=== PATIENT | male | born 1975 | race Caucasian/White ===

== ENCOUNTER 2016-08-08 09:47 | Emergency (ER) | payer SELFPAY ==
[2016-08-08 09:59] VITALS: BMI 36.5
--- NOTE | 2016-08-08 13:10 | PDOC ---
History of Present Illness - General History Source: Patient Exam Limitations: No Limitations - History of Present Illness Initial Comments: 08/08/16 13:45 The patient is a 40 year old male presenting with his , with a significant past medical history of HTN, who presents to the emergency department with headache onset today and back pain for the last couple of weeks. He states that he was at work when he felt a flushed feeling going through his head, for which he became red. It was accompanied by a moderate pounding headache. He notes that the pain lasted roughly 5 minutes before resolving, pt also endorsed some pain in his mouth with this flushing sensation. He denies any current headache He denies taking any medication for the pain. There was no associated vision changes, numbness/tingling/weakness in the face/extremities, neck pain, syncope. He also states that he has been having left sided back pain, thats intermittent in nature for the past couple of weeks. He describes the pain as ranging from mild to moderate, radiationd down his LLQ/groin region He notes that standing up and moving in certain positions exacerbates his pain. The pt denies any current pain in his back. The patient denies chest pain, shortness of breath, and dizziness. Denies fever , chills, nausea, vomit, diarrhea and constipation. Denies dysuria, frequency, urgency and hematuria. Allergies: None Past surgical history: None reported Social history: No alcohol, tobacco or drug use reported <Josiah Jorge - Last Filed: 08/08/16 13:45> <Jeet High - Last Filed: 08/08/16 15:00> - General Chief Complaint: Back Pain Stated Complaint: CHEST PAIN Time Seen by Provider: 08/08/16 12:25 Past History <Josiah Jorge - Last Filed: 08/08/16 13:45> - Past Medical History Diabetes: No HTN: Yes - Psycho/Social/Smoking Cessation Hx Anxiety: No Suicidal Ideation: No Smoking History: Never smoked Have you smoked in the past 12 months: No Information on smoking cessation initiated: No Hx Alcohol Use: No Drug/Substance Use Hx: No Substance Use Type: None <Jeet High - Last Filed: 08/08/16 15:00> - Past Medical History Allergies/Adverse Reactions: Allergies Allergy/AdvReac Type Severity Reaction Status Date / Time No Known Allergies Allergy Verified 08/08/16 09:54 Home Medications: Ambulatory Orders Glyburide 5 mg PO BID 08/08/16 Metformin HCl 850 mg PO BID 08/08/16 Ramipril 10 mg PO DAILY 08/08/16 Review of Systems - Review of Systems Able to Perform ROS?: Yes Comments:: 08/08/16 13:45 CONSTITUTIONAL: No reported: Fever, Chills, Diaphoresis, Generalized Weakness, Malaise, Loss of Appetite HEENT: No reported: Rhinorrhea, Nasal Congestion, Throat Pain, Throat Swelling, Difficulty Swallowing, Mouth Swelling, Ear Pain, Eye Pain, Visual Changes CARDIOVASCULAR: No reported: Chest Pain, Syncope, Palpitations, Irregular Heart Rate, Lightheadedness, Peripheral Edema RESPIRATORY: No reported: Cough, Shortness of Breath, SOB with Exertion, Orthopnea, Wheezing , Stridor, Hemoptysis GASTROINTESTINAL: No reported: Abdominal pain, Abdominal Distension, Nausea, Vomiting, Diarrhea, Constipation, Melena, Hematochezia GENITOURINARY: No reported: Dysuria, Frequency, Urgency, Hesitancy, Flank Pain, Genital Pain MUSCULOSKELETAL: Reported: Lower back pain. No reported: Myalgia, Arthralgia, Joint Swelling, Neck Pain SKIN: No reported: Rash, Itching, Pallor HEMEATOLOGIC/IMMUNOLOGIC: No reported: Easy Bleeding, Easy Bruising, Lymphadenopathy, Frequent infections ENDOCRINE: No reported: Unexplained Weight Gain, Unexplained Weight Loss, Heat Intolerance , Cold Intolerance NEUROLOGIC: Reported: Headache/flushed sensation No reported: Focal Weakness, Paresthesias, Vertigo, Lightheadedness, Unsteady Gait, Seizure, Mental Status Changes, Incontinence PSYCHIATRIC: No reported: Anxiety, Depression <Josiah Jorge - Last Filed: 08/08/16 13:45> *Physical Exam - Vital Signs Last Vital Signs Temp Pulse Resp BP Pulse Ox 97 F L 86 2 L 158/90 96 08/08/16 09:54 08/08/16 09:54 08/08/16 09:54 08/08/16 09:54 08/08/16 09:54 - Physical Exam Comments: 08/08/16 13:45 GENERAL: The patient is awake, alert, and fully oriented, Nontoxic - in no acute distress. HEAD: Normocephalic, atraumatic. EYES: pupils 3mm and symmetrically reactive to light, extraocular movements intact, sclera anicteric, conjunctiva clear. ENT: Normal voice, Moist mucous membranes. NECK: Normal range of motion, supple, No carotid bruits appreciated. LUNGS: Breath sounds equal, clear to auscultation bilaterally. No wheezes, no rhonchi, no rales. HEART: Regular rate and rhythm, without murmur, rub or gallop. ABDOMEN: Soft, nontender, normoactive bowel sounds. No guarding, no rebound.No CVA tenderness BACK: No focal tenderness in the back EXTREMITIES: Normal range of motion, no edema. No clubbing or cyanosis. No cords, erythema, or tenderness. NEUROLOGICAL: No facial assymetry, Normal speech, PSYCH: Normal mood, normal affect. SKIN: Warm, Dry, normal turgor NEURO: Mental status: The patient is oriented x3. Cranial nerves: Cranial nerves II through XII are intact Motor: The upper extremities are 5 over 5 in all muscle groups. The lower extremities are 5 over 5 in all muscle groups. Sensation: Sensation is intact to light touch throughout. romberg negative Cerebellar: [id number] is normal in both upper extremities. Gait: Normal. <Josiah Jorge - Last Filed: 08/08/16 13:45> - Vital Signs Last Vital Signs Temp Pulse Resp BP Pulse Ox 97 F L 86 2 L 158/90 96 08/08/16 09:54 08/08/16 09:54 08/08/16 09:54 08/08/16 09:54 08/08/16 09:54 <Jeet High - Last Filed: 08/08/16 15:00> ED Treatment Course - LABORATORY CBC & Chemistry Diagram: 08/08/16 13:55 08/08/16 13:55 <Jeet High - Last Filed: 08/08/16 15:00> Medical Decision Making - Medical Decision Making 08/08/16 13:23 40y m hx of htn, presents with episode of feeling pounding headache and feeling flushed while at work lasting for approx 1 min without any neurologic complaints includig dizziness, vision changes, numbness/tingling/weakness, pt also has complaints of occasional Left lower back pain that radiate to his leg when he sits up and walks around. The pt denies any current headache, abd pain , n/v, f/c, dysuria, diarrhea. pts exam is unremarabkle including neuro exam. suspect back strain as cause of his back pain will ck ua to r/o kidney stones ?tension headache normal neuro exam, not severe headache so doubt SAH based onn clinical history A portion of this note was documented by scribe services under my direction. I have reviewed the details of the note, within reason, and agree with the documentation with the following case summary and management plan written by me 08/08/16 14:46 labs unremarkable pt asymptomatic will dc with pmd fu return precautions were discussed I discussed the physical exam findings, ancillary test results and final diagnoses with the patient. I answered all of the patient's questions. The patient was satisfied with the care received and felt comfortable with the discharge plan and treatment plan. The patient will call their primary care physician within 24 hours to arrange follow-up and will return to the Emergency Department with any new, persistent or worsening symptoms. <Jeet High - Last Filed: 08/08/16 15:00> *DC/Admit/Observation/Transfer - Attestations Scribe Attestion: 08/08/16 13:45 Documentation prepared by Josiah Jorge, acting as medical device for Jeet High MD <Josiah Jorge - Last Filed: 08/08/16 13:45> - Discharge Dispostion Admit: No <Jeet High - Last Filed: 08/08/16 15:00> Diagnosis at time of Disposition: Headache Qualifiers: Headache type: tension-type Headache chronicity pattern: acute headache Intractability: not intractable Qualified Code(s): G44.209 - Tension-type headache, unspecified, not intractable Back strain Qualifiers: Encounter type: initial encounter Qualified Code(s): S39.012A - Strain of muscle, fascia and tendon of lower back, initial encounter - Discharge Dispostion Disposition: HOME Condition at time of disposition: Improved - Referrals Referrals: [facility] [Provider Group] - Patient Instructions Printed Discharge Instructions: DI for Hormonal and Tension Headaches Additional Instructions: Return to the emergency department immediately with ANY new, persistent or worsening symptoms including worsening headache, vision changes, numbness/ tingling/weakness, persistent nausea and vomiting or any other concerns. Make sure you are getting adaqute sleep and hydration. You MUST call and follow up with your doctor tomorrow for further evaluation of your symptoms. Your emergency department visit is not complete without a followup with your doctor for reevaluation. Results were discussed with you. Please make sure your doctor reviews the results of your emergency evaluation. If you had any xrays during your visit, it was read preliminarily by myself, a Radiologist will review it and if there are any additional findings we will call you. Print Language: MACEDONIAN - Post Discharge Activity Work/School Note: Back to Work
[2016-08-08] MEDS ORDERED: IBUPROFEN 400 MG TABLET (FP) PO ONE (13:22)
[2016-08-08 14:07] LABS: BASOPHIL 0.9 % (0-2.0); EOSINOPHIL 1.1 % (0-4.5); MCH 27.9 pg (25.7-33.7); MCHC 34.6 g/dl (32.0-35.9); MEAN CELL VOLUME 80.6 fl (80-96); MEAN PLT VOLUME 8.9 fl (7.5-11.1); NEUTROPHILS 67.2 % (42.8-82.8); PLATELET COUNT 226 K/MM3 (134-434); RDW 13.7 % (11.9-15.9); WHITE BLOOD COUNT 13.4 K/mm3 (4.0-10.0)
[2016-08-08 14:31] LABS: URINE APPEARANCE CLEAR; URINE BILIRUBIN NEGATIVE (NEGATIVE); URINE BLOOD NEGATIVE (NEGATIVE); URINE COLOR STRAW; URINE GLUCOSE (UA) NEGATIVE (NEGATIVE); URINE KETONE NEGATIVE (NEGATIVE); URINE LEUK ESTERASE NEGATIVE (NEGATIVE); URINE NITRITE NEGATIVE (NEGATIVE); URINE PROTEIN NEGATIVE (NEGATIVE); URINE UROBILINOGEN NEGATIVE E.U./dl (0.2-1.0)
[2016-08-08 14:39] LABS: ALBUMIN 4.5 g/dl (3.4-5.0); ANION GAP 8 (8-16); CALCIUM 9.5 mg/dL (8.5-10.1); CO2 28 mmol/L (21-32); COCKROFT - GAULT 233.43; CREATININE 0.7 mg/dL (0.7-1.3); GLUCOSE,RANDOM 128 mg/dL (74-106); SGPT/ALT 69 U/L (12-78)
[2016-08-08 14:41] LABS: ALK PHOS 91 U/L (45-117); BILIRUBIN,TOTAL 0.8 mg/dL (0.2-1.0); TOT PROT 8.2 g/dl (6.4-8.2)
[2016-08-08 14:42] VITALS: BP 125/69; PULSE 77; TEMP 98.1
[2016-08-08 14:44] LABS: SGOT/AST 43 U/L (15-37)
== END 2016-08-08 15:00 | disposition home or self-care (01) ==
LOC: JER 09:47
DX: G44.209 Tension-type headache, unspecified, not intractable (principal); S39.012A Strain of muscle, fascia and tendon of lower back, initial encounter; I10 Essential (primary) hypertension; E11.9 Type 2 diabetes mellitus without complications; Z79.84 Long term (current) use of oral hypoglycemic drugs; X58.XXXA Exposure to other specified factors, initial encounter; Y93.89 Activity, other specified; Y92.89 Other specified places as the place of occurrence of the external cause
CPT/HCPCS: 36415; 80053; 81003; 85025; 99284-25